=== PATIENT | male | born 1995 | race Caucasian/White ===

== ENCOUNTER 2019-02-09 11:34 | Emergency (ER) | payer OTHER ==
[2019-02-09] MEDS: IBUPROFEN 600 MG TAB PO (13:20)
[2019-02-09] MEDS: ACETAMINOPHEN 325 MG TAB PO (13:21)
== END 2019-02-09 14:29 | disposition home or self-care (01) ==
LOC: E/R 11:34
DX: S00.83XA Contusion of other part of head, initial encounter (principal); J32.9 Chronic sinusitis, unspecified; Y04.2XXA Assault by strike against or bumped into by another person, initial encounter
CPT/HCPCS: 70486; 99284-25